=== PATIENT | male | born 1965 | race American Indian/Alaskan Native ===

== ENCOUNTER 2017-12-27 12:13 | Emergency (ER) | payer OTHER ==
[2017-12-27] MEDS ORDERED: ZOFRAN ODT PO ONE (16:09)
--- NOTE | 2017-12-27 16:09 | Event Note ---
Date: 12/27/17 Patient is a 52-year-old male possibly restrictive high blood pressure presents with headache and also started on for last 4 days. Patient states that his headache and nausea have been intermittent. I will get ct head and troponin
[2017-12-27 16:28] LABS: Basophils % (Auto) 0.5 % (0.0-1.8); Eosinophils % (Auto) 0.1 % (0.0-4.3); Hematocrit 46.4 % (35.5-45.6); Hemoglobin 15.6 gm/dl (11.8-15.2); Lymphocytes # (Auto) 1.3 K/mm3 (1.2-5.4); Mean Corpuscular HGB Conc 34 % (32-34); Mean Corpuscular Hemoglobin 30 pg (28-32); Mean Corpuscular Volume 90 fl (84-94); Monocytes # (Auto) 0.7 K/mm3 (0.0-0.8); Monocytes % (Auto) 7.8 % (0.0-7.3); Platelet Count 194 K/mm3 (140-440); Red Blood Count 5.15 M/mm3 (3.65-5.03); Red Cell Distribution Width 14.4 % (13.2-15.2)
[2017-12-27 16:44] LABS: Alanine Aminotransferase 16 units/L (7-56); Albumin 3.7 g/dL (3.9-5); BUN/Creatinine Ratio 13; Blood Urea Nitrogen 10 mg/dL (9-20); Calcium 8.5 mg/dL (8.4-10.2); Hemolysis Index 32
--- NOTE | 2017-12-27 17:13 | Emergency Department Report ---
ED Headache HPI - General Chief Complaint: Headache Stated Complaint: HEADACHE/EMESIS Time Seen by Provider: 12/27/17 16:08 Source: patient, family Exam Limitations: no limitations - History of Present Illness Initial Comments: This is a 52 y.o. male that presents with a headache for 2 weeks. Pain is intermittent and last for 10 minutes at a time. It is usually in the frontal region. He is having vomiting and dizziness with headaches for the past 2 days. The headaches are more frequent than usual and more persistent since he stopped taking blood pressure medication. 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 He is checking blood pressure at work and getting 140's/90's. Denies SOB, visual changes, chest pain, and abdominal pain. Timing/Duration: waxing and waning, other (10 minutes) Quality: severe, throbbing Head Injury Location: frontal Recent Head Trauma: no recent headache/trauma, frequent headaches Associated Symptoms: nausea/vomiting (vomiting for 2 days). denies: confusion, fatigue, facial pain, fever/chills, flushing, loss of consciousness, nasal congestion, nasal drainage, numbness in legs/feet, rash, seizures, sinus infection, stiff neck, vision changes, weakness Allergies/Adverse Reactions: Allergies No Known Allergies Allergy (Unverified 12/27/17 12:49) ED Review of Systems ROS: Stated complaint: HEADACHE/EMESIS Other details as noted in HPI Constitutional: denies: chills, fever Respiratory: denies: cough, shortness of breath, wheezing Cardiovascular: denies: chest pain, palpitations Gastrointestinal: denies: abdominal pain, nausea, diarrhea Neurological: headache. denies: weakness, paresthesias ED Past Medical Hx - Past Medical History Hx Hypertension: Yes Additional medical history: syncope - Surgical History Past Surgical History?: No - Social History Smoking Status: Never Smoker Substance Use Type: None ED Physical Exam - General Limitations: No Limitations General appearance: alert, in no apparent distress - Head Head exam: Present: atraumatic, normocephalic - Respiratory Respiratory exam: Present: normal lung sounds bilaterally. Absent: respiratory distress - Cardiovascular Cardiovascular Exam: Present: regular rate, normal rhythm, normal heart sounds. Absent: systolic murmur, diastolic murmur, rubs, gallop - GI/Abdominal GI/Abdominal exam: Present: soft, normal bowel sounds - Neurological Exam Neurological exam: Present: alert, oriented X3, normal gait - Skin Skin exam: Present: warm, dry, intact, normal color. Absent: rash ED Course Vital Signs 12/27/17 12:44 Temperature 98.5 F Pulse Rate 57 L Respiratory 18 Rate Blood Pressure 147/92 O2 Sat by Pulse 98 Oximetry ED Medical Decision Making - Lab Data Result diagrams: 12/27/17 16:16 12/27/17 16:16 - Radiology Data Radiology results: report reviewed CT Head IMPRESSION: Mass in the left frontal brain with significant associated edema mass effect and some midline shift. Differential considerations include but not limited to metastatic disease primary brain malignancy. Recommend CT scan with IV or preferably MRI with IV gadolinium to further evaluate.. - Medical Decision Making This is a 52 y.o. male that presents with severe headache and vomiting for 2 weeks that is increasing with frequency in the past 2 days. Obtained CBC, CMP, CT of head: IMPRESSION: Mass in the left frontal brain with significant associated edema mass effect and some midline shift. Differential considerations include but not limited to metastatic disease primary brain malignancy. Recommend CT scan with IV or preferably MRI with IV gadolinium to further evaluate. Discussed results with Dr. Rojo and Dr. Light and informed to transfer to [place]. Patient transferred to [facility], awaiting transport. Critical care attestation.: If time is entered above; I have spent that time in minutes in the direct care of this critically ill patient, excluding procedure time. ED Disposition Clinical Impression: Left frontal lobe mass Headache Qualifiers: Headache type: new daily persistent Qualified Code(s): G44.52 - New daily persistent headache (NDPH) Disposition: DC/TX-70 ANOTHER TYPE HLTHCARE Is pt being admited?: No Does the pt Need Aspirin: No Condition: Stable Referrals: PATRICIA ADAMS MD [Primary Care Provider] - 3-5 Days
--- NOTE | 2017-12-27 17:35 | Cat Scan Report ---
FINAL REPORT PROCEDURE: CT HEAD/BRAIN WO CON TECHNIQUE: Computerized tomography of the head was performed without contrast material. HISTORY: headache COMPARISON: No prior studies are available for comparison. FINDINGS: Skull and scalp: Normal. Paranasal sinuses: Normal. Ventricles and subarachnoid spaces: Normal. Cerebrum: 3.1 x 3.8 centimeter heterogeneous mass lesion in the left medial frontal lobe with surrounding edema. There is midline shift seen measuring 1 centimeter. Extensive edema in the upper left frontal portions of anterior temporal. There is midline shift of the upper level of the brain in the 2-3 millimeter range. There mass effect on the left frontal horn lesser degree right frontal horn some degree of the left lateral ventricle.. Cerebellum and brainstem: No evidence of hemorrhage, acute infarction or mass. Vasculature: Normal. Comments: None. IMPRESSION: Mass in the left frontal brain with significant associated edema mass effect and some midline shift. Differential considerations include but not limited to metastatic disease primary brain malignancy. Recommend CT scan with IV or preferably MRI with IV gadolinium to further evaluate..
--- NOTE | 2017-12-27 18:08 | Emergency Department Report ---
HPI - General Chief Complaint: Headache Time Seen by Provider: 12/27/17 16:08 - HPI HPI: The patient is a 52-year-old male who presents for evaluation of headache. The patient reports progressive headache for the past 2 weeks, constant severe for the past one to 2 days, throbbing in quality, frontal in location, and improved at rest. The patient denies fever, head injury, neck pain, neck stiffness, vision or hearing changes, smell or taste changes, paresthesias, facial drooping , slurred speech, seizure-like activity, urine or bowel incontinence or retention, or other focal neurological deficit. ED Past Medical Hx - Past Medical History Hx Hypertension: Yes Additional medical history: syncope - Surgical History Past Surgical History?: No - Social History Smoking Status: Never Smoker Substance Use Type: None ED Review of Systems ROS: Stated complaint: HEADACHE/EMESIS Other details as noted in HPI Constitutional: denies: fever ENT: denies: throat or neck pain Respiratory: denies: cough, shortness of breath Cardiovascular: denies: chest pain Endocrine: denies unexplained weight loss or gain Gastrointestinal: denies: abdominal pain, nausea Genitourinary: denies: dysuria Musculoskeletal: denies: leg swelling Skin: denies: rash Neurological: reports headache Hematological/Lymphatic: denies: easy bleeding or easy bruising Psych: denies sadness or hopelessness Constitutional: denies: chills, fever Respiratory: denies: cough, shortness of breath, wheezing Cardiovascular: denies: chest pain, palpitations Gastrointestinal: denies: abdominal pain, nausea, diarrhea Neurological: headache. denies: weakness, paresthesias Physical Exam - Physical Exam Vital Signs: Vital Signs 12/27/17 12:44 Temperature 98.5 F Pulse Rate 57 L Respiratory 18 Rate Blood Pressure 147/92 O2 Sat by Pulse 98 Oximetry Physical Exam: General: well-nourished, well-developed, no acute distress Head: Normocephalic, atraumatic Eyes: normal sclera, PERRL, EOM intact ENT: Mucous membranes are pink and moist Neck: trachea midline, neck supple, No neck stiffness, no cervical adenopathy Respiratory: Breath sounds equal bilaterally, no wheezing, rales, or rhonchi Cardio: S1 and S2 present, no murmurs, rubs, gallops, capillary refill is brisk Abdomen: Normoactive bowel sounds, soft abdomen, no rigidity, no guarding or rebound tenderness Musc: No pitting edema Skin: No rash Neuro: alert oriented x4, normal cognition, speech normal, no facial drooping, no uvula or tongue deviation on protrusion, no deficit with rotation of neck or shoulder shrug, no obvious gross motor deficit in the upper or lower extremities with flexion or extension at the shoulder, elbow, wrist, hip, knee, or ankle bilaterally, no obvious gross sensation deficit to crude touch or 2 pt discrimination, 2+ symmetric reflexes on DTR testing, no coordination deficit, Babinski downgoing Psych: Normal affect ED Course Vital Signs 12/27/17 12:44 Temperature 98.5 F Pulse Rate 57 L Respiratory 18 Rate Blood Pressure 147/92 O2 Sat by Pulse 98 Oximetry ED Medical Decision Making - Lab Data Result diagrams: 12/27/17 16:16 12/27/17 16:16 - Medical Decision Making The patient was seen and examined by myself. The patient is placed on a lead tank mechanic and continuous pulse ox. On initial evaluation, the patient was found to be in no distress. Evaluation orders were placed. The patient is given IV pain medicine. Lab results are grossly not concerning. CT scan of the head reveals a 3.1 x 3.8 cm heterogeneous mass lesion in the left medial frontal lobe with surrounding edema, 1 cm of midline shift, mass effect on left frontal horn left lateral ventricle, and right frontal horn. Dr. Ordonez, the on- call neurosurgeon at [facility] was contacted. He agreed to accept transfer the patient. The on-call neuro electronics specialist at [place] was contacted as well. They recommended administering IV Decadron and IV Keppra, which was completed. The patient is transferred to [facility] in serious condition. Critical care attestation.: If time is entered above; I have spent that time in minutes in the direct care of this critically ill patient, excluding procedure time. ED Disposition Clinical Impression: Left frontal lobe mass, Neoplasm causing mass effect on adjacent structures Acute nonintractable headache Qualifiers: Headache type: unspecified Qualified Code(s): R51 - Headache Headache Qualifiers: Headache type: new daily persistent Qualified Code(s): G44.52 - New daily persistent headache (NDPH) Disposition: DC/TX-70 ANOTHER TYPE HLTHCARE Is pt being admited?: No Does the pt Need Aspirin: No Condition: Serious Referrals: PATRICIA ADAMS MD [Primary Care Provider] - 3-5 Days Time of Disposition: 18:08
[2017-12-27] MEDS ORDERED: NORVASC ONE (18:13)
[2017-12-27] MEDS ORDERED: MORPHINE IV ONE (19:33)
[2017-12-27] MEDS ORDERED: ZOFRAN IV ONE (19:33)
[2017-12-27] MEDS ORDERED: DECADRON IV ONE (20:09)
[2017-12-27] MEDS ORDERED: KEPPRA 500 MG/NS 0.82% 100 ML 500 MG/100 ML BAG IV ONE (21:30)
[2017-12-28 00:17] LABS: INR 1.11 (0.87-1.13); Partial Thromboplastin Time 26.7 Sec. (24.2-36.6)
--- NOTE | 2017-12-28 00:32 | Magnetic Resonance Report ---
FINAL REPORT EXAM: MR BRAIN WO/W CON HISTORY: headache, brain mass TECHNIQUE: Routine multiplanar fast spin echo sequences were obtained of the brain. Following the intravenous injection of MultiHance, repeat axial coronal sequences with T1 weighted imaging was obtained of the brain. Correlation with the CT scan of the brain of 12/28/2017 was reviewed. FINDINGS: There is a heterogeneously enhancing neoplasm in the left frontal lobe measuring 3.7 cm x 3.2 cm x 2.9 cm with considerable surrounding vasogenic edema. The pre contrast signal characteristics show to be diminished signal on T1 as well as diminished signal on T2 weighting. The surrounding edema extends through the anterior commissure into the right frontal lobe. There is considerable mass effect on the left lateral ventricle with approximately 10.4 mm of [id number] subfalcine herniation. There are no additional enhancing lesions in the brain. There is asymmetric enlargement of the right lateral ventricle relative to the left. There is slight effacement of the intra peduncular cistern. There are no extra-axial fluid collections. There is normal signal void in the cavernous carotid and basilar arteries. The 7th and 8th nerve complexes appear normal. The visualized sinuses are clear. The orbital structures appear well maintained. Parasagittal images reveal a normal-appearing sella and craniocervical junction IMPRESSION: Heterogeneous enhancing neoplasm centered in the left frontal lobe with considerable surrounding vasogenic edema which extends into the right frontal lobe through the anterior commissure. The enhancing portion of the tumor measures 3.7 cm x 3.2 cm x 2.9 cm. This is compatible with a high-grade glioma. There is approximately 10.4 mm of left to right subfalcine herniation. There are no additional enhancing lesions in the brain.
[2017-12-28 00:44] VITALS: BP 130/70
== END 2017-12-28 00:44 | disposition other institution (70) ==
LOC: ED 12:13
DX: G44.52 New daily persistent headache (NDPH) (principal); G93.89 Other specified disorders of brain; I10 Essential (primary) hypertension
CPT/HCPCS: 36415; 70450; 70553; 80053; 84484; 85025; 85610; 85730; 93005; 93010; 96374; 96375; 99285; A9577; J1100; J1953; J2270; J2405; Q0162